=== PATIENT | female | born 1990 | race Caucasian/White ===

== ENCOUNTER 2025-03-25 07:15 | Emergency (ER) | payer OTHER ==
[2025-03-25 07:29] VITALS: BP 106/78; PULSE 82; RESP 20; TEMP 97.7; BMI 25.7
[2025-03-25 08:35] LABS: HCG,QUALITATIVE URINE Negative
[2025-03-25 08:40] LABS: EPITHELIAL CELLS 0-5 /hpf
[2025-03-25] MEDS ORDERED: KETOROLAC TROMETHAMINE 30 MG/1 ML VIAL ONE (08:55)
[2025-03-25] MEDS: KETOROLAC TROMETHAMINE 15 MG/ML VIAL IM ONE (08:56)
== END 2025-03-25 11:09 | disposition home or self-care (01) ==
LOC: FER 07:15
PROC: 3E0233Z Introduction of Anti-inflammatory into Muscle, Percutaneous Approach (ICD-10-PCS; principal; 2025-03-25)
DX: R10.2 Pelvic and perineal pain (principal)
CPT/HCPCS: 76830-TC; 81003; 81015; 84703; 87086; 87186; 99285-25